=== PATIENT | male | born 1955 | race Caucasian/White ===

== ENCOUNTER 2020-07-17 10:15 | Emergency (ER) | payer MEDICAID ==
[~2020-07-17] VITALS: Ht 177.8 cm; Wt 95.3 kg
[2020-07-17 10:33] VITALS: Ht 177.8 cm; Wt 95.3 kg
[2020-07-17 11:41] VITALS: BP 40/98
== END 2020-07-17 11:41 | disposition home or self-care (01) ==
LOC: ED 10:15
DX: J32.9 Chronic sinusitis, unspecified (principal); I10 Essential (primary) hypertension; K21.9 Gastro-esophageal reflux disease without esophagitis; Z90.89 Acquired absence of other organs; Z98.890 Other specified postprocedural states